=== PATIENT | male | born 1965 | race Caucasian/White ===

== ENCOUNTER → 2019-10-13 | Day surgery (SDC) | payer OTHER ==
[~2019-10-13] MED LIST: ACETAMINOPHEN 1000 MG/100 ML IV ONE; CEFAZOLIN SOD 1 GM/NS 50ML 100 ML IV ONE; DEXAMETHASONE SOD PHOS INJ 4 MG/ML VIAL ONE; EPHEDRINE SULFATE INJ 50 MG/10 ML SYR ONE; EPINEPHRINE HCL 1:1000 1ML 1 MG/ML AMP ONE; FENTANYL CITRATE/PF 100MCG/2 ML INJ ONE; FISH OIL 1,0001 EAC2 PO; GLYCOPYRROLATE INJ 1MG/ 5 ML SYR ONE; KETOROLAC TROMETHAMINE 30 MG/ML VIAL ONE; LIDOCAINE 2% /EPINEPHRINE 20 ML SDV INJ ONE; LIDOCAINE HCL 2% LOCAL INJ 5 ML SDV VIAL INJ ONE; MAGNESIUM OXID400 MG PO; MIDAZOLAM HCL 2 MG/2 ML VIAL ONE; NEOSTIGMINE 5 MG/5ML SYR ONE; ONDANSETRON HCL INJ 2MG/ML 2ML 2 MG/ML VIAL ONE; PROBIOTIC250 MG PO; PROPOFOL IV EMULSION 10 MG/ML 20 ML VIAL ONE; ROCURONIUM BROMIDE 10 MG/ML 5ML VIAL ONE; ROPIVACAINE 0.5% 5 MG/ML 30 ML SDV ONE; SEVOFLURANE INHAL SOLN 250 ML PEN BTL ONE; VINEGAR PO
--- OUTSIDE RECORDS SUMMARY | 2019-10-13 05:55 | XMS REPORT ---
Author Author [facility] Address Unknown Phone Unavailable Care Team Providers Care Doughnut Batter Mixer Name Role Phone MARIOJAYSHREEE Unavailable Unavailable Dorothea HYLTON Unavailable Unavailable SYSTEM, NOT IN PROVIDER Unavailable Unavailable Problems This patient has no known problems. Allergies, Adverse Reactions, Alerts This patient has no known allergies or adverse reactions. Medications This patient has no known medications. Results Test Description Test Time Test Comments Text Results Atomic Results Result Comments [facility] 2019-08-31 08:34:00 Sodium (test code=NA) 144 mmol/l 137-145 Potassium (test code=K) 4.0 mmol/l 3.5-5.1 Chloride (test code=CL) 108 mmol/l 98-107 Calcium (test code=CALC) 9.0 mg/dl 8.5-10.1 CO2 (test code=CO2) 27 mmol/l 21-32 Glucose (test code=GLU) 96 mg/dl 74-106 BUN (test code=BUN) 12.0 mg/dl 7.0-18.0 Creatinine (test code=CREA) 0.7 mg/dl 0.5-1.3 T Protein (test code=TP) 7.7 gm/dl 6.4-8.2 Albumin (test code=ALB) 4.1 gm/dl 3.4-5.0 A/G Ratio (test code=AGRAT) 1.1 % 1.1-2.2 AST (SGOT) (test code=AST) 26 U/L 15-37 ALT (SGPT) (test code=ALT) 51 U/L 13-61 Alkaline Phos (test code=ALKP) 71 U/L 45-117 Total Bilirubin (test code=TBIL) 1.1 mg/dl 0.2-1.0 Globulin (test code=GLOBU) 3.6 gm/dl 2.3-3.5 Calcium, Corrected (test code=CALCCORR) 8.9 mg/dl 8.4-10.2 Various formulas exist for corrected serum calcium results, each yielding different values. This corrected result was based on the formula: Corrected Calcium=SerumCalcium + [0.8 * ( 4 - SerumAlbumin)] EGFR if (test code=EGFRAA) >60 mL/min/1.73m\\S\\2 EGFR if Non- (test code=EGFRNA) >60 mL/min/1.73m\\S\\2 Estimated Glomerular Filtration Rate (eGFR) Reference Intervals Decision Points for 18 years and older and average body mass: >=60 Does not exclude kidney disease. 30 - 59 Suggests moderate chronic kidney disease and indicates the need for further investigation including assessment of proteinuria and cardiovascular factors. < 30 Usually indicates a need for referral for assessment and management of chronic kidney failure. CORONARY [id number] 08:34:00* Test Item Value Reference Range Comments Triglycerides (test code=TRIG) 201 mg/dl 0-149 Trig. Interpretation Guide: Normal: < 150 mg/dl Borderline High: 150 - 199 mg/dl High: 200 - 499 mg/dl Very High: >=500 mg/dl Cholesterol (test code=CHOL) 207 mg/dl 0-200 HDL (test code=HDL) 36 mg/dl 35-86 dLDL (test code=DILDL) 136 mg/dl 0-99 Direct LDL Intrepretations: Optimal: <100 mg/dl Suspect: 100 - 129 mg/dl Borderline: 130 - 159 mg/dl High: 160 - 189 mg/dl Very High: >190 mg/dl Risk Factor (test code=RFACT) 5.8 0.0-5.0 Risk Factor Men Women Risk Factor 3.4 3.3 1/2 Average 5.0 4.4 Average 9.6 7.1 2X Average 24.0 11.0 3X Average vLDL (test code=VLDL) 40 mg/dl 30-60 [id number] 08:34:00* Test Item Value Reference Range Comments PSA (test code=PSA) 0.69 ng/ml 0.01-4.00 CBC WITH AUTO [id number] 08:16:00* Test Item Value Reference Range Comments WBC (test code=WBC) 3.84 10\\S\\3/ul 4.80-10.80 RBC (test code=RBC) 5.35 10\\S\\6/ul 4.70-6.10 Hemoglobin (test code=HGB) 16.9 gm/dl 14.0-18.0 Hematocrit (test code=HCT) 46.8 % 42.0-50.0 MCV (test code=MCV) 87.5 fL 80.0-94.0 MCH (test code=MCH) 31.6 pg 27.0-31.0 MCHC (test code=MCHC) 36.1 gm/dl 33.0-37.0 RDW (test code=RDWVC) 12.3 % 11.5-14.5 Platelet (test code=PLT) 150 10\\S\\3/ul 130-400 MPV (test code=MPV) 11.0 fL 7.4-10.4 "NOT MEASURED" RESULTS ARE DISPLAYED WHEN THE INSTRUMENT HAS A SUPPRESSED OR UNREPORTABLE RESULT. THIS WILL MOST OFTEN HAPPEN WITH THE MPV WHEN THERE IS AN ABNORMAL PLATELET DISTRIBUTION DUE TO A CR ITICAL LOW VALUE OR PLATELET CLUMPING. THE RDW MAY BE SUPPRESSED IF THERE ARE MULTIPLE PEAKS PRESENT ON THE RBC HISTOGRAM. IN THIS CASE, A MANUAL REVIEW OF THE SLIDE WILL BE PERFORMED, AND RBC MORPHOLOGY WILL BE NOTED ON THE REPORT. NE% (test code=NE) 58.8 % 42.0-75.0 LY% (test code=LY) 25.8 % 13.0-42.0 MO% (test code=MO) 11.7 % 4.0-14.0 EO% (test code=EO) 2.6 % 1.0-5.0 BA% (test code=BA) 0.8 % 0.0-3.0 IG% (test code=IG%) 0.3 % 0.0-0.4 MRI SHOULDER WO [id number] 06:19:34Right shoulder pain after a fall last month.Procedure: MRI SHOULDER WO CONTRASTOrder Date: 08/30/2019 2:32 PMOrdering Provider: VERONICA SUMAATTClinical Indication: [id number]: Pain of right shoulder jointComparison: NoneTechnique: Multiplanar MRI of the right shoulder was obtained without theadministration of intravenous contrast.Findings:Full-thickness tear of the supraspinatus tendon with retraction to theacromioclavicular joint. The supraspinatus muscle is atrophic without fattyinfiltration..Full-thickness tear of the infraspinatus tendon with retraction to theacromioclavicular joint. The infraspinatus muscle is atrophic with fattyinfiltration. NoFull-thickness tear of the subscapularis tendon. No fatty infiltration withinthe subscapularis muscle.Full-thickness tear of the distal long head of the biceps tendon without anormal tendon in the bicipital groove.Glenoid labrum is grossly intact.There is normal signal within the musculature of the shoulder.Small volume of fluid in the subacromial/subdeltoid bursa.Small joint effusion.No fracture or dislocation.Severe osteoarthrosis of the right acromioclavicular joint.Severe narrowing of the subacromial space.High riding right humeral head.Mild osteoarthrosis of the right glenohumeral joint.Impression:1. Full-thickness tears of the supraspinatus, infraspinatus, and subscapularistendons of the right shoulder. There is atrophy of the supraspinatus andinfraspinatus muscles without fatty infiltration.2. Full- thickness tear of the distal long head of the biceps tendon with anabsent bic ipital groove.3. Severe osteoarthrosis of the right acromioclavicular joint.4. M ild osteoarthrosis of the right glenohumeral joint.5. Small joint effusion.This final report was electronically signed by Dr Rich Tanner MD 08/31/20196:13 AM Dictated By: RICH TANNERDate: 08/31/2019 06:[id number] 14:28:00 Medical Cytology Report Case: [id number] Authorizing Provider: Alexsander Hylton MD Collected: 04/27/2018 1417 Ordering Location: [facility] PERI[facility] Received: 04/27/2018 1433 SER VICES Patholog ist: Vinh Saavedra MD Specimen: Urine, Bladder Wash URINE, BLADDER WASH (CYTOSPINS): - SUSPICIOUS FOR MALIGNANCY Signing Pathologist Direct Phone Line: [phone] prostatic hyperplasiaURINE, BLADDER [id number] mls yellow; 4 cytospin sCollected: [id number]: [id number] [facility], Department of Pathology, [address] [place] [address], Tel [facility], [address] [place] [address], PYBZUYID [id number] 16:01:00* Test Item Value Reference Range Comments CYTOLOGY RESULT POINTER (BEAKER) (test guhd=5816) See Separate Report BASIC METABOLIC [id number] 17:39:00* Test Item Value Reference Range Comments SODIUM (BEAKER) (test lmpp=146) 141 meq/L 136-145 POTASSIUM (BEAKER) (test zqlm=782) 4.5 meq/L 3.5-5.1 Specimen slightly hemolyzed CHLORIDE (BEAKER) (test brhy=256) 106 meq/L 98-107 CO2 (BEAKER) (test ggzf=763) 28 meq/L 22-29 BLOOD UREA NITROGEN (BEAKER) (test wshr=496) 11 mg/dL 7-21 CREATININE (BEAKER) (test ddbq=426) 0.73 mg/dL 0.57-1.25 Specimen slightly hemolyzed GLUCOSE RANDOM (BEAKER) (test gwhq=558) 110 mg/dL 70-105 CALCIUM (BEAKER) (test uoqj=148) 9.6 mg/dL 8.4-10.2 EGFR (BEAKER) (test hfug=7300) 113 mL/min/1.73 sq m ESTIMATED GFR IS NOT ACCURATE CREATININE CLEARANCE IN PREDICTING GLOMERULAR FILTRATION RATE. ESTIMATED GFR IS NOT APPLICABLE FOR DIALYSIS PATIENTS. PROTHROMBIN TIME/[id number] 17:33:00* Test Item Value Reference Range Comments PROTIME (BEAKER) (test phqy=070) 13.7 seconds 11.7-14.7 INR (BEAKER) (test lxoz=064) 1.1 <=5.9 RECOMMENDED COUMADIN/WARFARIN INR THERAPY RANGESSTANDARD DOSE: 2.0 - 3.0 Inclu aparna: PROPHYLAXIS for venous thrombosis, systemic embolization; TREATMENT for otilia ous thrombosis and/or pulmonary embolus.HIGH RISK: Target INR is 2.5-3.5 for pat ients with mechanical heart valves.URINALYSIS W/ [id number] 17:25:00 * Test Item Value Reference Range Comments COLOR (BEAKER) (test hxjo=930) Light Yellow CLARITY (BEAKER) (test japp=571) Clear SPECIFIC GRAVITY UA (BEAKER) (test dmqr=418) 1.008 1.001-1.035 PH UA (BEAKER) (test xtch=347) 6.5 5.0-8.0 PROTEIN UA (BEAKER) (test dnuv=383) Negative Negative GLUCOSE UA (BEAKER) (test ofcs=600) Negative Negative KETONES UA (BEAKER) (test zozb=541) Negative Negative BILIRUBIN UA (BEAKER) (test mybs=256) Negative Negative BLOOD UA (BEAKER) (test wevt=091) Negative Negative NITRITE UA (BEAKER) (test fnbw=111) Negative Negative LEUKOCYTE ESTERASE UA (BEAKER) (test ddvu=937) Negative Negative UROBILINOGEN UA (BEAKER) (test ddhw=837) 0.2 mg/dL 0.2-1.0 RBC UA (BEAKER) (test pqdx=384) 0 /HPF WBC UA (BEAKER) (test ksnb=675) 0 /HPF SOURCE(BEAKER) (test eujm=6342) CBC W/PLT COUNT & AUTO [id number] 17:10:00* Test Item Value Reference Range Comments WHITE BLOOD CELL COUNT (BEAKER) (test xfae=786) 4.0 K/ L 3.5-10.5 RED BLOOD CELL COUNT (BEAKER) (test tqxp=213) 4.99 M/ L 4.63-6.08 HEMOGLOBIN (BEAKER) (test gwiy=079) 15.1 GM/DL 13.7-17.5 HEMATOCRIT (BEAKER) (test xgxp=361) 44.2 % 40.1-51.0 MEAN CORPUSCULAR VOLUME (BEAKER) (test sywq=990) 88.6 fL 79.0-92.2 MEAN CORPUSCULAR HEMOGLOBIN (BEAKER) (test vhly=850) 30.3 pg 25.7-32.2 MEAN CORPUSCULAR HEMOGLOBIN CONC (BEAKER) (test asgc=422) 34.2 GM/DL 32.3-36.5 RED CELL DISTRIBUTION WIDTH (BEAKER) (test jryr=233) 13.5 % 11.6-14.4 PLATELET COUNT (BEAKER) (test bgnz=295) 134 K/CU MM 150-450 MEAN PLATELET VOLUME (BEAKER) (test gtlo=253) 10.9 fL 9.4-12.4 NUCLEATED RED BLOOD CELLS (BEAKER) (test dgtv=002) 0 /100 WBC 0-0 NEUTROPHILS RELATIVE PERCENT (BEAKER) (test yiyv=422) 56 % LYMPHOCYTES RELATIVE PERCENT (BEAKER) (test bhmf=252) 29 % MONOCYTES RELATIVE PERCENT (BEAKER) (test esga=184) 11 % EOSINOPHILS RELATIVE PERCENT (BEAKER) (test jfiu=974) 3 % BASOPHILS RELATIVE PERCENT (BEAKER) (test pylx=120) 1 % NEUTROPHILS ABSOLUTE COUNT (BEAKER) (test mizz=330) 2.22 K/ L 1.78-5.38 LYMPHOCYTES ABSOLUTE COUNT (BEAKER) (test coen=218) 1.16 K/ L 1.32-3.57 MONOCYTES ABSOLUTE COUNT (BEAKER) (test usrs=404) 0.45 K/ L 0.30-0.82 EOSINOPHILS ABSOLUTE COUNT (BEAKER) (test eyxs=016) 0.11 K/ L 0.04-0.54 BASOPHILS ABSOLUTE COUNT (BEAKER) (test jjlr=983) 0.03 K/ L 0.01-0.08 IMMATURE GRANULOCYTES-RELATIVE PERCENT (BEAKER) (test guaf=5555) 0 % 0-1 U/S, TESTICULAR (SCROTUM)2017-12-05 10:29:00Reason for Exam:->N50.9FINAL REPORT Scrotal ultrasound. Clinical History: N50.9 Discussion: Sonographic evaluation of the scrotal contents is performed. In addition, color Doppler and spectral waveform analysis evaluations of the scrotal contents are obtained. The testes have homogeneous echotexture, without focal mass. The right testis measures 5.4 x 2.4 x 3.5 centimeters. The left testis measures 5.1 x 2 x 3.4 centimeters. On color Doppler evaluation, there is symmetric blood flow to both testes. The epididymal heads have normal size and appearance. The right epididymal head measures 1.3 x 0.3 x 1.1 centimeters. The left epididymal head measures 1.3 x 0.6 x 0.9 cm. Impression: Unremarkable scrotal ultrasound. No intratesticular or extratesticular mass. Signed: Lincoln Shields MDReport Verified Date/Time: 12/05/2017 10:29:17 Reading Location: [address] 10 [address], [id number] 10:24:00FINAL REPORT ABDOMINAL AND PELVIS CT DATED 12/05/2017 CLINICAL INFORMATION: R10.12 TECHNIQUE: Axial images of the abdomen and pelvis were obtained from diaphragm to the pubic symphysis with GI and intravenous contrast. This exam was performed according to our departmental dose-optimization program, which includes automated exposure control, adjustment of the mA and/or kV according to patient size and/or use of interactive reconstruction technique. COMMENT: Liver and spleen are normal in size without focal abnormality. Gallbladder is contracted. No gallstone or biliary dilatation is noted. Pancreas and adrenals are unremarkable. Both kidneys are normal in size and functioning with prompt bilateral excretion. No hydronephrosis, solid or cystic mass is seen in either kidney. The opacified small bowel is unremarkable. The evaluation of the large bowel is limited secondary to lack of sufficient GI contrast. Scattered dive rticular disease is seen in the large bowel without diverticulitis. Appendix is normal in caliber. Nonspecific lymph nodes are seen in the periaortic retroperit oneum. The largest lymph node measures approximately 0.4 x 0.9 cm. The urinary b ladder is contracted. Wall thickening is seen in the urinary bladder. This maybe secondary to nondistention or cystitis. IMPRESSION: 1. Suboptimal evaluation of the large bowel secondary to lack of sufficient GI contrast.2. Diverticulosis without diverticulitis.3. Nonspecific small lymph nodes in the retroperitoneum. 4. Nonspecific wall thickening involving the urinary bladder. Signed: Haile Apodaca MDReport Verified Date/Time: 12/05/2017 10:24:21 Reading Location: [facility] C01 3Y CT Body Reading Room Electronically signed by: DIANE APODACA M.D. on 10:24 AM [id number] 09:46:00* Test Item Value Reference Range Comments POC-CREATININE (BEAKER) (test wbvl=2890) 0.7 mg/dL 0.6-1.3 TESTED AT [facility] [address] [place] [address] POC-EGFR (POLLY) (test ewga=9862) 119 mL/min/1.73M2 RAD, CHEST, 2 [id number] 08:44:00Reason for Exam:->R22.2FINAL REPORT Chest, two views HISTORY: Localized swelling of trunk COMPARISON: None. DISCUSSION: Lungs are clear without focal consolidation. Cardiomediastinal silhouette is unremarkable. No acute osseous abnormality. No pleural effusion or pneumothorax. Visualized portions of the upper abdomen are unremarkable. IMPRESSION: No acute cardiopulmonary abnormality. Signed: Lincoln Shields MDReport Verified Date/Time: 12/05/2017 08:44:06 Reading Location: [address] Radiology Reading Room
[2019-10-13 12:25] VITALS: BP 135/87
--- NOTE | 2019-10-18 12:22 | Operative Report ---
DATE OF PROCEDURE: 10/13/2019 SURGEON: Davide Olivera MD PREOPERATIVE DIAGNOSES: Right rotator cuff tear, right biceps tendon tear, and right AC joint arthritis. 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 OPERATIONS AND PROCEDURES PERFORMED: The patient underwent right shoulder exam under anesthesia, right shoulder arthroscopy, right shoulder debridement of synovitis, right shoulder chondroplasty of the humeral head and glenoid, right shoulder debridement of a partial subscapularis tendon tear, right shoulder biceps tenolysis, right shoulder arthroscopic rotator cuff reconstruction, right shoulder arthroscopic subacromial decompression and acromioplasty, and right shoulder arthroscopic distal clavicle resection. TEMPLATE INSPECTOR: There was no assistant floor covering printer. ANESTHESIA: General endotracheal intubation anesthesia. IV FLUIDS: Per the anesthesia record. BLOOD LOSS: Minimal. BRIEF DESCRIPTION OF THE PATIENT'S OPERATIVE PROCEDURE: Mr. Banuelos was taken to the operating room and placed in supine position on the operating table. Following induction of general anesthesia as well as endotracheal intubation, the patient's right shoulder was examined under anesthesia. He had no gross abnormalities of the shoulder joint. The patient's shoulder demonstrated full passive range of motion. There were no mechanical symptoms within the shoulder during the range of motion. There was no evidence of instability. The patient's upper extremity was prepped and draped in standard surgical fashion. Standard posterior lateral and anterior portals were created without difficulty. The scope was placed within the shoulder joint atraumatically. Examination of the glenohumeral articulation demonstrated chondromalacia of the humeral head and the glenoid. There were no loose bodies within the shoulder joint. There was a partial tear of the subscapularis tendon. There was a complete tear of the supraspinatus and infraspinatus tendons with retraction. A probe was placed in the shoulder joint and the biceps tendon was identified. There was an extensive labral tear extending into the insertion of the biceps tendon. The biceps tendon was also nearly completely torn as it exited the shoulder joint. Given the extensive damage of the biceps tendon, a biceps tenolysis was performed. A chondroplasty of the humeral head and glenoid was performed at this time. There was diffuse synovitis within the shoulder joint and the synovitis was debrided. A shaver was also used to debride a partial subscapularis tendon tear. The insertion site for the rotator cuff was debrided. The scope was then transferred to the subacromial space and a lateral portal was created through an outside-in technique. Significant bursal inflammation was encountered. The bursa was resected. There was significant scar tissue invested about the torn and retracted rotator cuff. The scar bands were debrided. The rotator cuff tendon was found to be atrophic. A combination of a shaver as well as blunt dissection was used to free the rotator cuff. The rotator cuff was then advanced and found to be pliable enough to provide a reconstruction. The insertion site was further debrided. Two suture anchors were inserted into the greater tuberosity of the humerus and the sutures from those suture anchors were then woven through the rotator cuff tissue. The rotator cuff tissue was then advanced and tied firmly over the greater tuberosity. This resulted in reapproximation of the rotator cuff tissue into its normal insertion site. The coracoacromial ligament was resected. An acromioplasty was performed. The shaver was then transferred to the anterior portal and a 1 cm section of the distal clavicle was resected. This was visualized using the scope through both the anterior and lateral portals. The shoulder was placed through range of motion and there was no impingement of the rotator cuff repair on the overlying acromion. The shoulder was inflated with sterile normal saline. The portal sites were closed. Sterile dressings were applied and the patient was provided a shoulder immobilizer, awakened, and taken to the postanesthesia care unit in stable condition. MD DION Barbour/FELIPA /[id number]
== END | disposition home or self-care (01) ==
LOC: OR 05:53
PROVIDERS: ATTEND Specialist
DX: M75.121 Complete rotator cuff tear or rupture of right shoulder, not specified as traumatic (principal); S46.211A Strain of muscle, fascia and tendon of other parts of biceps, right arm, initial encounter; M19.011 Primary osteoarthritis, right shoulder; M65.811 Other synovitis and tenosynovitis, right shoulder; M94.211 Chondromalacia, right shoulder; Z01.810 Encounter for preprocedural cardiovascular examination
CPT/HCPCS: 93005; C1713; J0171; J0690; J1100; J1885; J2001; J2250; J2405; J2795; J3010